=== PATIENT | female | born 1940 | race Caucasian/White ===

== ENCOUNTER 2020-03-09 11:25 | Emergency (ER) | payer MEDICARE, MEDICAID | END 2020-03-09 17:05 | disposition home or self-care (01) | LOC: M ED 11:25 | DX: S00.83XA Contusion of other part of head, initial encounter (principal); W01.0XXA Fall on same level from slipping, tripping and stumbling without subsequent striking against object, initial encounter; Y92.018 Other place in single-family (private) house as the place of occurrence of the external cause; F03.90 Unspecified dementia, unspecified severity, without behavioral disturbance, psychotic disturbance, mood disturbance, and anxiety; Z86.73 Personal history of transient ischemic attack (TIA), and cerebral infarction without residual deficits; Z79.899 Other long term (current) drug therapy; Z79.890 Hormone replacement therapy; Z79.01 Long term (current) use of anticoagulants ==